=== PATIENT | female | born 1980 | race Caucasian/White ===

== ENCOUNTER 2021-04-16 00:41 | Emergency (ER) | payer OTHER ==
[~2021-04-16] VITALS: Ht 165.1 cm; Wt 77.0 kg
[~2021-04-16 00:41] MED LIST: BENAZEPRIL; LABETALOL
[2021-04-16] MEDS ORDERED: IBUPROFEN 600MG TABLET PO ONE (02:15)
[2021-04-16] MEDS ORDERED: METHOCARBAMOL 500MG TABLET PO ONE (02:15)
[2021-04-16] MEDS ORDERED: METH-653 MT (05:02)
[2021-04-16] MEDS ORDERED: IBUP-2028 MT (05:02)
[2021-04-16 06:00] VITALS: BP 145/90
== END 2021-04-16 06:00 | disposition home or self-care (01) ==
LOC: ER 00:41
DX: S29.012A Strain of muscle and tendon of back wall of thorax, initial encounter (principal); M54.5 Low back pain; I10 Essential (primary) hypertension; V49.59XA Passenger injured in collision with other motor vehicles in traffic accident, initial encounter; Y93.89 Activity, other specified; Y92.488 Other paved roadways as the place of occurrence of the external cause
CPT/HCPCS: 71045; 72070; 81025; 99284

== ENCOUNTER 2023-02-27 22:24 | Emergency (ER) | payer MEDICAID, OTHER ==
[~2023-02-27 22:24] MED LIST changes: +IBUP-2028 MT; +METH-653 MT
[2023-02-27 22:37] VITALS: BP 177/100; PULSE 74; RESP 16; TEMP 98.2
[2023-02-27] MEDS ORDERED: METOCLOPRAMIDE HCL 10MG TABLET PO NR (22:45)
[2023-02-27] MEDS ORDERED: DIPHENHYDRAMINE 25MG CAPSULE PO NR (22:45)
[2023-02-27] MEDS ORDERED: ACETAMINOPHEN 325MG TABLET PO NR (22:45)
[2023-02-28] MEDS ORDERED: ACET-2708 MT (00:06)
[2023-02-28] MEDS ORDERED: METO-293 MT (00:06)
== END 2023-02-28 01:05 | disposition home or self-care (01) ==
LOC: ER 22:24
DX: G43.909 Migraine, unspecified, not intractable, without status migrainosus (principal); I10 Essential (primary) hypertension; Z79.899 Other long term (current) drug therapy
CPT/HCPCS: 99284; Q0163; J8597